=== PATIENT | male | born 1970 | race Caucasian/White ===

== ENCOUNTER 2020-04-13 09:45 | Outpatient (CLI) | payer OTHER ==
--- NOTE | 2020-04-13 11:00 | XRay Report ---
BILATERAL HIPS WITH PELVIS, 3 VIEWS INDICATION: Bilateral hip pain. COMPARISON: None. IMPRESSION: No acute osseous or soft tissue abnormality. No significant DJD. BILATERAL KNEES STANDING, ONE VIEW INDICATION: PAIN IN RIGHT/LEFT KNEE. COMPARISON: None. IMPRESSION: No acute osseous or soft tissue abnormality. No significant DJD. No significant varus or valgus deformity. LUMBOSACRAL SPINE 2 VIEWS INDICATION: Back pain. COMPARISON: None. IMPRESSION: There is 5 mm anterolisthesis of L4 with respect to L5. Chronic appearing bilateral pars defects are suspected at L4 level. The remaining lumbar vertebra are normal in alignment. There is mild disc space narrowing and marginal spurring at L4-5. Moderate hypertrophic facet arthropathy is a lso identified at L4-5. The remaining levels demonstrate minimal degenerative changes. No acute osse ous or soft tissue abnormality. Signer Name: Valentin Chapa Jr, MD Signed: 04/13/2020 10:56 AM Workstation Name: [id number]
== END 2020-04-13 09:46 | disposition home or self-care (01) ==
LOC: XRAY 09:45
PROVIDERS: ATTEND Internal Medicine
DX: M43.16 Spondylolisthesis, lumbar region (principal); M48.061 Spinal stenosis, lumbar region without neurogenic claudication; M47.816 Spondylosis without myelopathy or radiculopathy, lumbar region; M46.06 Spinal enthesopathy, lumbar region; M25.561 Pain in right knee; M25.562 Pain in left knee; M25.551 Pain in right hip; M25.552 Pain in left hip
CPT/HCPCS: 72100; 73521; 73565